=== PATIENT | female | born 2000 | race Caucasian/White ===

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

== ENCOUNTER 2019-05-14 13:00 | Emergency (ER) | payer BC ==
[2019-05-14 14:43] VITALS: BP 107/63
--- NOTE | 2019-05-14 14:53 | UC ---
Skin Complaint HPI - HPI Summary HPI Summary: 19-year-old female presents with complaints of laceration to the posterior left heel. States yesterday at approximately 4 PM she accidentally cut the back of her heel on a metal door as she was leaving a store. Bleeding was controlled prior to arrival. Reports full range of motion to her ankle. Patient presents for evaluation out of concern for possible infection. Last tetanus was 3 years ago. Denies fever, chills, erythema, edema, or purulent drainage. - History of Current Complaint Chief Complaint: UCSkin Time Seen by Provider: 05/14/19 14:48 Stated Complaint: LAC ON RT FOOT Hx Obtained From: Patient Hx Last Menstrual Period: 04/21/19 Pain Intensity: 0 - Allergy/Home Medications Allergies/Adverse Reactions: Allergies Allergy/AdvReac Type Severity Reaction Status Date / Time PEANUTS Allergy Intermediate Hives Uncoded 05/14/19 14:43 PMH/Surg Hx/FS Hx/Imm Hx Previously Healthy: Yes - Denies significant PMH - Surgical History Surgical History: None - Family History Known Family History: Positive: Hypertension - Social History Occupation: Student Lives: Dormitory/Roommates Alcohol Use: None Substance Use Type: None Smoking Status (MU): Never Smoked Tobacco Have You Smoked in the Last Year: No - Immunization History Most Recent Influenza Vaccination: not yet 2017 Vaccination Up to Date: Yes Review of Systems All Other Systems Reviewed And Are Negative: Yes Constitutional: Negative: Fever, Chills Skin: Positive: Other - See HPI Respiratory: Positive: Negative Cardiovascular: Positive: Negative Gastrointestinal: Positive: Negative Genitourinary: Positive: Negative Musculoskeletal: Positive: Negative Neurological: Positive: Negative Is Patient Immunocompromised?: No Physical Exam - Summary Physical Exam Summary: GENERAL APPEARANCE: Well developed, well nourished, alert and cooperative, and appears to be in no acute distress. CARDIAC: Normal S1 and S2. No S3, S4 or murmurs. Rhythm is regular. There is no peripheral edema, cyanosis or pallor. Extremities are warm and well perfused. Capillary refill is less than 2 seconds. Peripheral pulses intact. LUNGS: Clear to auscultation without rales, rhonchi, wheezing or diminished breath sounds. ABDOMEN: Positive bowel sounds. Soft, nondistended, nontender. No guarding or rebound. No masses or hepatosplenomegally. MUSKULOSKELETAL: ROM intact to all extremities. No joint erythema or tenderness. Normal muscular development. Normal gait. EXTREMITIES: Superficial linear abrasion to the posterior right heel without erythema, edema, or purulent discharge. Full ROM to the left ankle. Circulation and sensation intact. SKIN: Skin normal color, texture and turgor. Triage Information Reviewed: Yes Vital Signs: Initial Vital Signs Temp 99.0 F 05/14/19 14:40 Pulse 70 05/14/19 14:40 Resp 16 05/14/19 14:40 BP 107/63 05/14/19 14:40 Pulse Ox 99 05/14/19 14:40 Vital Signs Reviewed: Yes Course/Dx - Course Course Of Treatment: 19-year-old female presents with complaints of laceration to the posterior left heel. States yesterday at approximately 4 PM she accidentally cut the back of her heel on a metal door as she was leaving a store. Bleeding was controlled prior to arrival. Reports full range of motion to her ankle. Patient presents for evaluation out of concern for possible infection. Last tetanus was 3 years ago. Denies fever, chills, erythema, edema, or purulent drainage. Afebrile. VSS. Patient had superficial linear abrasion to the posterior right heel without erythema, edema, or purulent discharge. Full ROM to the left ankle. Circulation and sensation intact. Discussed with the patient that the wound appeared to be a superficial abrasion without signs of infection that did not require closure and therefore recommending conservative treatment for a superficial abrasion of the left heel. Wound care, anticipatory guidance, and warning symptoms were reviewed with the patient. Verbalizes understanding and agrees with plan of care. - Differential Diagnoses - Skin Complaint Differential Diagnoses: Cellulitis, Other - abrasion, laceration, wound infection - Diagnoses Provider Diagnosis: Abrasion of left heel Discharge ED - Sign-Out/Discharge Documenting (check all that apply): Patient Departure All imaging exams completed and their final reports reviewed: No Studies - Discharge Plan Condition: Stable Disposition: HOME Patient Education Materials: Abrasion (ED) Referrals: No Primary Care Phys,NOPCP [Primary Care Provider] - Additional Instructions: You have a superficial abrasion to the back of your left heel. There is no evidence of action at this time and the wound does not require any repair. Be sure to keep the wound clean with a mild soap and water at least once daily. Apply antibiotic ointment and cover with a dressing until healed. Be sure to change the dressing once a day or any time it becomes wet or soiled. Watch for signs of infection including fever greater than 100.5 F, severe pain not managed with pain medication, redness that spreads, swelling of the foot or ankle, or pus draining from the wound. Seek immediate medical attention should any of these occur. - Billing Disposition and Condition Condition: STABLE Disposition: Home
== END 2019-05-14 15:28 | disposition home or self-care (01) ==
LOC: UCCORT 13:00
DX: S90.812A Abrasion, left foot, initial encounter (principal); W22.8XXA Striking against or struck by other objects, initial encounter; Y93.01 Activity, walking, marching and hiking; Y92.89 Other specified places as the place of occurrence of the external cause
CPT/HCPCS: 99212; G0463

== ENCOUNTER 2019-07-30 08:49 | Emergency (ER) | payer BC ==
[2019-07-30 09:11] VITALS: BP 104/76
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
== END 2019-07-30 09:30 | disposition home or self-care (01) ==
LOC: UCCORT 08:49
DX: S06.0X9A Concussion with loss of consciousness of unspecified duration, initial encounter (principal); Z91.010 Allergy to peanuts; V43.92XA Unspecified car occupant injured in collision with other type car in traffic accident, initial encounter; Y92.9 Unspecified place or not applicable
CPT/HCPCS: 99212; G0463